=== PATIENT | female | born 1970 | race African-American/Black ===

== ENCOUNTER 2021-05-14 15:26 | Emergency (ER) | payer OTHER ==
[2021-05-14 16:10] VITALS: BP 116/79; PULSE 60; TEMP 98.1; BMI 35.2
== END 2021-05-14 17:27 | disposition home or self-care (01) ==
LOC: JER 15:26 → JERFT 15:26
DX: F32.0 Major depressive disorder, single episode, mild (principal)
CPT/HCPCS: 99283-25